=== PATIENT | male | born 1975 | race Caucasian/White ===

== ENCOUNTER 2018-10-27 16:27 | Inpatient (IN) | payer BC ==
[~2018-10-27] VITALS: Ht 180.3 cm; Wt 88.5 kg
[2018-10-27] MEDS ORDERED: CLINDAMYCIN 600MG PREMIX 50 ML IV ONE (16:30)
[2018-10-27 17:24] LABS: BASO % 1 % (0-3); EOS # 0.1 x10^3/uL (0.0-0.7); EOS % 1 % (0-3); HEMATOCRIT 47.9 % (39.0-53.0); HEMOGLOBIN 16.9 g/dL (13.0-17.5); LYMPH # 1.6 x10^3/uL (1.0-4.8); LYMPH % 23 % (24-48); MEAN CORPUSCULAR HEMOGLOBIN 32 pg (25-35); MEAN CORPUSCULAR HGB CONC 35 g/dL (31-37); MEAN CORPUSCULAR VOLUME 90 fL (79-100); MONO # 0.6 x10^3/uL (0.0-1.1); MONO % 8 % (0-9); NEUT # 4.7 x10^3/uL (1.8-7.7); NEUT % 67 % (31-73); PLATELET COUNT 220 x10^3/uL (140-400); RED BLOOD COUNT 5.32 x10^6/uL (4.30-5.70); RED CELL DISTRIBUTION WIDTH 13.5 % (11.5-14.5)
--- NOTE | 2018-10-27 17:24 | PHYS DOC ---
Past Medical History Past Medical History: Asthma, High Cholesterol, Other Additional Past Medical Histor: ASTHMA A CHILD Past Surgical History: No Surgical History Alcohol Use: Heavy Drug Use: Marijuana Adult General Chief Complaint Chief Complaint: UPPER EXTREMITY PAIN HPI HPI Patient is a 43 year old male who presents with 3 days ago was doing work when he got stung on the right forearm. Patient states the area was only quarter- sized and red he was put on doxycycline by a urgent care. Patient states today he went back to urgent care and the redness is now spread dramatically and he's got a red streak up his right forearm. Review of Systems Review of Systems Constitutional: Denies fever or chills [] Eyes: Denies change in visual acuity, redness, or eye pain [] HENT: Denies nasal congestion or sore throat [] Respiratory: Denies cough or shortness of breath [] Cardiovascular: No additional information not addressed in HPI [] GI: Denies abdominal pain, nausea, vomiting, bloody stools or diarrhea [] : Denies dysuria or hematuria [] Musculoskeletal: Denies back pain or joint pain [] Integument: Right forearm wound with cellulitis. Denies rash or skin lesions [] Neurologic: Denies headache, focal weakness or sensory changes [] Endocrine: Denies polyuria or polydipsia [] All other systems were reviewed and found to be within normal limits, except as documented in this note. Current Medications Current Medications Current Medications Medications (Trade) Dose Ordered Sig/Fiona Start Time Stop Time Status Last Admin Dose Admin Clindamycin Phosphate 50 ml @ 100 mls/hr 1X ONCE 10/27/18 16:30 10/27/18 16:59 DC 10/27/18 17:19 100 MLS/HR Allergies Allergies Allergies Coded Allergies Type Severity Reaction Last Updated Verified No Known Drug Allergies 02/06/16 No Physical Exam Physical Exam Constitutional: Well developed, well nourished, no acute distress, non-toxic appearance. [] HENT: Normocephalic, atraumatic, bilateral external ears normal, oropharynx moist, no oral exudates, nose normal. [] Eyes: PERRLA, EOMI, conjunctiva normal, no discharge. [] Neck: Normal range of motion, no tenderness, supple, no stridor. [] Cardiovascular:Heart rate regular rhythm, no murmur [] Lungs & Thorax: Bilateral breath sounds clear to auscultation [] Abdomen: Bowel sounds normal, soft, no tenderness, no masses, no pulsatile masses. [] Skin: Right forearm wound with associated cellulitis and warmth. Warm, dry, no erythema, no rash. [] Back: No tenderness, no CVA tenderness. [] Extremities: No tenderness, no cyanosis, no clubbing, ROM intact, no edema. [] Neurologic: Alert and oriented X 3, normal motor function, normal sensory function, no focal deficits noted. [] Psychologic: Affect normal, judgement normal, mood normal. [] Current Patient Data Lab Values Laboratory Tests Test 10/27/18 17:12 White Blood Count 7.0 x10^3/uL (4.0-11.0) Red Blood Count 5.32 x10^6/uL (4.30-5.70) Hemoglobin 16.9 g/dL (13.0-17.5) Hematocrit 47.9 % (39.0-53.0) Mean Corpuscular Volume 90 fL (79-100) Mean Corpuscular Hemoglobin 32 pg (25-35) Mean Corpuscular Hemoglobin Concent 35 g/dL (31-37) Red Cell Distribution Width 13.5 % (11.5-14.5) Platelet Count 220 x10^3/uL (140-400) Neutrophils (%) (Auto) 67 % (31-73) Lymphocytes (%) (Auto) 23 % (24-48) L Monocytes (%) (Auto) 8 % (0-9) Eosinophils (%) (Auto) 1 % (0-3) Basophils (%) (Auto) 1 % (0-3) Neutrophils # (Auto) 4.7 x10^3/uL (1.8-7.7) Lymphocytes # (Auto) 1.6 x10^3/uL (1.0-4.8) Monocytes # (Auto) 0.6 x10^3/uL (0.0-1.1) Eosinophils # (Auto) 0.1 x10^3/uL (0.0-0.7) Basophils # (Auto) 0.0 x10^3/uL (0.0-0.2) Laboratory Tests 10/27/18 17:12 EKG EKG [] Radiology/Procedures Radiology/Procedures [] Course & Med Decision Making Course & Med Decision Making Patient is a 43 year old male who presents with 3 days ago was doing work when he got stung on the right forearm. Patient states the area was only quarter- sized and red he was put on doxycycline by a urgent care. Patient states today he went back to urgent care and the redness is now spread dramatically and he's got a red streak up his right forearm. The redness now measures 11.5 cm in length and is 2.75 cm wide. The center of the redness there is a wound that is not draining at this time and is slightly raised and has a hard center. Afebrile. Alert and oriented. Skin pink warm and dry. Mucous membranes moist. Patient denies fever, shortness of breath, numbness or tingling, chest pain, nausea, vomiting, abdominal pain, body aches. Patient has full range of motion of his hand and all fingers. Patient has full range of motion of his elbow. The redness and the wound does not cover any joints. Cap refill less than 3 seconds. He states it is painful and has some burning and rates pain at a 5/10. Vital signs within normal limits. I started the patient on clindamycin IV. I have spoken to Dr Cruz and patient is admitted. Dragon Disclaimer Huber Disclaimer This electronic medical record was generated, in whole or in part, using a voice recognition dictation system. Departure Departure Impression: Primary Impression: Cellulitis Disposition: ADMITTED INPATIENT [facility] Referrals: ROOPA GUPTA (PCP) Problem Qualifiers Primary Impression: Cellulitis Site of cellulitis: extremity Site of cellulitis of extremity: upper extremity Laterality: right Qualified Codes: L03.113 - Cellulitis of right upper limb ESPERANZA CANO KEY PUNCH OPERATOR Oct 27, 2018 17:24
[2018-10-27 17:51] LABS: CALCIUM 9.6 mg/dL (8.5-10.1); CREATININE 1.3 mg/dL (0.7-1.3); GFR 60.2; POTASSIUM 3.8 mmol/L (3.5-5.1)
[2018-10-27] MEDS ORDERED: NICOTINE 21MG PATCH. TD PRN (18:00)
[2018-10-27] MEDS ORDERED: fentaNYL PF VIAL 100 MCG/2 ML VIAL IV PRN ×2 (18:00)
[2018-10-27] MEDS ORDERED: cloNIDine HCL 0.1 MG TABLET PO PRN (18:00)
[2018-10-27] MEDS ORDERED: guaiFENesin DM 200MG/20MG 10 ML SYRUP PO PRN (18:00)
[2018-10-27] MEDS ORDERED: ONDANSETRON PF 4 MG/2 ML VIAL. IV PRN ×2 (18:00)
[2018-10-27] MEDS ORDERED: ZOLPIDEM 5 MG TABLET. PO PRN (18:00)
[2018-10-27] MEDS ORDERED: oxyCODONE/APAP 5/325 1 TAB TABLET PO PRN (18:00)
[2018-10-27] MEDS ORDERED: ACETAMINOPHEN 500 MG TABLET PO PRN (18:00)
[2018-10-27 18:04] LABS: ALBUMIN 4.6 g/dL (3.4-5.0); ALBUMIN/GLOBULIN RATIO 1.2 (1.0-1.7); C-REACTIVE PROTEIN 1.6 mg/L (0-3.3); TOTAL BILIRUBIN 0.5 mg/dL (0.2-1.0); TOTAL PROTEIN 8.5 g/dL (6.4-8.2)
[2018-10-27] MEDS ORDERED: VANCOMYCIN PER PHARMACY MC PRN (18:45)
--- NOTE | 2018-10-27 18:45 | PDOC1 ---
History and Physical Date of Admission Date of Admission DATE: 10/27/18 TIME: 18:39 Identification/Chief Complaint Chief Complaint rt forearm bite that has worsened despite OP doxycycline Source Source: Caregiver, Chart review, Patient History of Present Illness History of Present Illness 43-year-old white male, no past medical, does not take any home meds except for statin 20 mgs PO qD, was out in the garden pulling weeds few days ago, then noticed on the right forearm, volar surface bite he did not see the inciting bug. Went to urgent care it was fluctuant, appropriately for discharged on doxycycline, got 3 doses at home but now worse in terms of erythema and streaking upwards, although it has flattened a bit. Never happened before. Smoker and occasional drinker. No home meds, only takes atorvastatin 20 mgs once a day for dyslipidemia. No fever, no white count. Got clindamycin 1 at the ER Nondiabetic Past Medical History Cardiovascular: Hyperlipidemia GI: No pertinent hx Heme/Onc: No pertinent hx Hepatobiliary: No pertinent hx Psych: No pertinent hx Rheumatologic: No pertinent hx Infectious disease: No pertinent hx ENT: No pertinent hx Renal/: No pertinent hx Endocrine: No pertinent hx Dermatology: No pertinent hx Past Surgical History Past Surgical History: No pertinent history Family History Family History: Hypertension Social History Smoke: <1 pack per day ALCOHOL: occassional Drugs: None Current Problem List Problem List Problems Medical Problems: (1) Cellulitis Status: Acute Current Medications Current Medications Current Medications Clindamycin Phosphate 50 ml @ 100 mls/hr 1X ONCE IV Last administered on 10/27/18at 17:19; Start 10/27/18 at 16:30; Stop 10/27/18 at 16:59; Status DC Ondansetron HCl (Zofran) 4 mg PRN Q8HRS PRN IV NAUSEA/VOMITING; Start 10/27/18 at 18:00; Stop 10/27/18 at 18:00; Status DC Fentanyl Citrate (Fentanyl 2ml Vial) 50 mcg PRN Q1HR PRN IV PAIN; Start 10/27/18 at 18:00; Stop 10/27/18 at 18:00; Status DC Fentanyl Citrate (Fentanyl 2ml Vial) 50 mcg PRN Q2HR PRN IV PAIN; Start 10/27/18 at 18:00 Ondansetron HCl (Zofran) 4 mg PRN Q6HRS PRN IV NAUSEA/VOMITING; Start 10/27/18 at 18:00 Oxycodone/ Acetaminophen (Percocet 5/325) 1 tab PRN Q4HRS PRN PO PAIN; Start 10/27/18 at 18:00 Zolpidem Tartrate (Ambien) 5 mg PRN QHS PRN PO INSOMNIA; Start 10/27/18 at 18:00 Acetaminophen (Tylenol) 500 mg PRN Q6HRS PRN PO MILD PAIN / TEMP; Start 10/27/18 at 18:00 Clonidine HCl (Catapres) 0.1 mg PRN Q1HR PRN PO HYPERTENSION; Start 10/27/18 at 18:00 Nicotine (Nicoderm Cq 21mg) 1 patch PRN DAILY PRN TD SMOKING CESSATION; Start 10/27/18 at 18:00 Guaifenesin (Robitussin Dm) 10 ml PRN Q6HRS PRN PO COUGH; Start 10/27/18 at 18:00 Allergies Allergies: Coded Allergies: Penicillins (Verified Allergy, Unknown, 10/27/18) ROS Review of System As per history of present illness, the rest of ROS 14 point negative Physical Exam General: Alert, Oriented X3, Cooperative, No acute distress HEENT: Atraumatic, PERRLA, EOMI Lungs: Clear to auscultation, Normal air movement Heart: S1S2, RRR, no thrills, no rubs, no gallops, no murmurs Cardiovascular: S1, S2 Abdomen: Normal bowel sounds, Soft, No tenderness, No hepatosplenomegaly, No masses Male Genitals Exam: normal genitalia, normal prostate Rectal Exam: not examined Extremities: No clubbing, No cyanosis, No edema, Other (right forearm volar surface wound, punctuate/bite seen, with erythema around maybe 4 CM surrounding erythema in greatest after streaking upwards to the right arm) Neuro: Normal gait, Normal speech, Strength at 5/5 X4 ext, Normal tone, Sensation intact, Cranial nerves 3-12 NL, Reflexes 2+ Psych/Mental Status: Mental status NL, Mood NL Vitals Vitals Vital Signs Date Time Temp Pulse Resp B/P (MAP) Pulse Ox O2 Delivery O2 Flow Rate FiO2 10/27/18 17:47 98.8 102 16 132/80 (97) 97 Room Air 98.8 Labs Labs Laboratory Tests Test 10/27/18 17:12 White Blood Count 7.0 x10^3/uL (4.0-11.0) Red Blood Count 5.32 x10^6/uL (4.30-5.70) Hemoglobin 16.9 g/dL (13.0-17.5) Hematocrit 47.9 % (39.0-53.0) Mean Corpuscular Volume 90 fL (79-100) Mean Corpuscular Hemoglobin 32 pg (25-35) Mean Corpuscular Hemoglobin Concent 35 g/dL (31-37) Red Cell Distribution Width 13.5 % (11.5-14.5) Platelet Count 220 x10^3/uL (140-400) Neutrophils (%) (Auto) 67 % (31-73) Lymphocytes (%) (Auto) 23 % (24-48) Monocytes (%) (Auto) 8 % (0-9) Eosinophils (%) (Auto) 1 % (0-3) Basophils (%) (Auto) 1 % (0-3) Neutrophils # (Auto) 4.7 x10^3/uL (1.8-7.7) Lymphocytes # (Auto) 1.6 x10^3/uL (1.0-4.8) Monocytes # (Auto) 0.6 x10^3/uL (0.0-1.1) Eosinophils # (Auto) 0.1 x10^3/uL (0.0-0.7) Basophils # (Auto) 0.0 x10^3/uL (0.0-0.2) Sodium Level 139 mmol/L (136-145) Potassium Level 3.8 mmol/L (3.5-5.1) Chloride Level 101 mmol/L (98-107) Carbon Dioxide Level 28 mmol/L (21-32) Anion Gap 10 (6-14) Blood Urea Nitrogen 10 mg/dL (8-26) Creatinine 1.3 mg/dL (0.7-1.3) Estimated GFR (Cockcroft-Gault) 60.2 BUN/Creatinine Ratio 8 (6-20) Glucose Level 109 mg/dL (70-99) Lactic Acid Level 1.3 mmol/L (0.4-2.0) Calcium Level 9.6 mg/dL (8.5-10.1) Total Bilirubin 0.5 mg/dL (0.2-1.0) Aspartate Amino Transf (AST/SGOT) 25 U/L (15-37) Alanine Aminotransferase (ALT/SGPT) 31 U/L (16-63) Alkaline Phosphatase 125 U/L (46-116) C-Reactive Protein, Quantitative 1.6 mg/L (0-3.3) Total Protein 8.5 g/dL (6.4-8.2) Albumin 4.6 g/dL (3.4-5.0) Albumin/Globulin Ratio 1.2 (1.0-1.7) Laboratory Tests Test 10/27/18 17:12 White Blood Count 7.0 x10^3/uL (4.0-11.0) Red Blood Count 5.32 x10^6/uL (4.30-5.70) Hemoglobin 16.9 g/dL (13.0-17.5) Hematocrit 47.9 % (39.0-53.0) Mean Corpuscular Volume 90 fL (79-100) Mean Corpuscular Hemoglobin 32 pg (25-35) Mean Corpuscular Hemoglobin Concent 35 g/dL (31-37) Red Cell Distribution Width 13.5 % (11.5-14.5) Platelet Count 220 x10^3/uL (140-400) Neutrophils (%) (Auto) 67 % (31-73) Lymphocytes (%) (Auto) 23 % (24-48) Monocytes (%) (Auto) 8 % (0-9) Eosinophils (%) (Auto) 1 % (0-3) Basophils (%) (Auto) 1 % (0-3) Neutrophils # (Auto) 4.7 x10^3/uL (1.8-7.7) Lymphocytes # (Auto) 1.6 x10^3/uL (1.0-4.8) Monocytes # (Auto) 0.6 x10^3/uL (0.0-1.1) Eosinophils # (Auto) 0.1 x10^3/uL (0.0-0.7) Basophils # (Auto) 0.0 x10^3/uL (0.0-0.2) Sodium Level 139 mmol/L (136-145) Potassium Level 3.8 mmol/L (3.5-5.1) Chloride Level 101 mmol/L (98-107) Carbon Dioxide Level 28 mmol/L (21-32) Anion Gap 10 (6-14) Blood Urea Nitrogen 10 mg/dL (8-26) Creatinine 1.3 mg/dL (0.7-1.3) Estimated GFR (Cockcroft-Gault) 60.2 BUN/Creatinine Ratio 8 (6-20) Glucose Level 109 mg/dL (70-99) Lactic Acid Level 1.3 mmol/L (0.4-2.0) Calcium Level 9.6 mg/dL (8.5-10.1) Total Bilirubin 0.5 mg/dL (0.2-1.0) Aspartate Amino Transf (AST/SGOT) 25 U/L (15-37) Alanine Aminotransferase (ALT/SGPT) 31 U/L (16-63) Alkaline Phosphatase 125 U/L (46-116) C-Reactive Protein, Quantitative 1.6 mg/L (0-3.3) Total Protein 8.5 g/dL (6.4-8.2) Albumin 4.6 g/dL (3.4-5.0) Albumin/Globulin Ratio 1.2 (1.0-1.7) VTE Prophylaxis Ordered VTE Prophylaxis Devices: Yes VTE Pharmacological Prophylaxi: Yes Assessment/Plan Assessment/Plan RT Forearm volar surface bite/wound with cellulitis streaking upwards Nondiabetic Failed outpatient abx - doxycycline-got total 3 doses (went to urgent care) Occasional smoker, occasional drinker Dyslipidemia on statin PLAN: 2 [place] VAnc per pharamcy Check CRP ID consult OK to cont statin NSAID celebrex to help with inflammation Area of concern has been marked with blank ink Reg diet I held off US, not fluctuant - somewhat flat BC drawn already at ER román patch FULL CODE Seen at ER BRENDA JACKSON MD Oct 27, 2018 18:45
[2018-10-27 19:00] VITALS: BP 136/82
[2018-10-27] MEDS ORDERED: VANCOMYCIN 2 GM in IV NORMAL SALINE 500ML BAG 500 ML IV ONE (19:30)
--- NOTE | 2018-10-27 19:41 | NUR ---
Pharmacy Vancomycin Dosing Note S:Consulted to monitor and dose vancomycin started 10/27/18. O:PETEY SHERIDAN is a 43 year old M with Cellulitis . Height: 5 feet, 11 inches Weight: [id number] kg [place] Body Weight: 75.30 Adjusted Body Weight: 80.38 Dosing Weight: Actual Other Antibiotics: LABS: Last BUN: 10 Last Creatinine: 1.3 Creatinine Clearance: 84 mL/min Last WBC: 7.0 Last Procalcitonin: Tmax (past 24 hours): Microbiology: I/O: Drug Levels: Last level: on at Last dose given at Vancomycin Dosing: Loading Dose: 2000 mg x1 Dosing Weight: Actual Target Trough: 10-20 A: Based on: HT, WT AND RENAL FUNCTION P: 1. Begin Vancomycin 1250 mg IV q12h 2. Follow up Trough level on 10/29/18 at 0630 3. Pharmacy will continue to monitor, follow and adjust therapy as needed. NI BURNETTE, [facility], 10/27/18 [id number]
--- NOTE | 2018-10-27 19:51 | NUR ---
The patient, PETEY SHERIDAN, 43 y/o, M admitted by BRENDA JACKSON MD, was given written information regarding hospital policies, unit procedures and contact persons. Valuables were checked and left with him.
[2018-10-27] MEDS ORDERED: ATOR20TA58 PO (21:08)
[2018-10-27] MEDS: CELECOXIB 100 MG CAPSULE. PO SCH (21:43)
[2018-10-27] MEDS ORDERED: ATORVASTATIN CALCIUM 20 MG TABLET PO SCH (22:00)
[2018-10-27 23:05] VITALS: BP 134/74
[2018-10-28 03:22] VITALS: BP 118/70
[2018-10-28 05:14] LABS: CALCIUM 8.6 mg/dL (8.5-10.1); CREATININE 1.1 mg/dL (0.7-1.3); GFR 73.1; POTASSIUM 3.7 mmol/L (3.5-5.1)
[2018-10-28 07:00] VITALS: BP 126/81
[2018-10-28] MEDS ORDERED: VANCOMYCIN 1.25 GM in IV NORMAL SALINE 250ML 250 ML IV SCH (07:00)
[2018-10-28] MEDS: CELECOXIB 100 MG CAPSULE. PO SCH (08:31)
--- NOTE | 2018-10-28 09:17 | PDOC ---
PROGRESS NOTES Chief Complaint Chief Complaint RT Forearm volar surface bite/wound with cellulitis streaking upwards Nondiabetic Failed outpatient abx - doxycycline-got total 3 doses (went to urgent care) Occasional smoker, occasional drinker Dyslipidemia on statin History of Present Illness History of Present Illness I see him after about after 12 hours when I last saw him at the ER Right upper arm streaking is gone, significant improvement of redness and erythema around the bite site Plan Await ID rounds Might be able to DC either later or tomorrow morning Continue vanc for now Blood cultures are still cooking Vitals Vitals Vital Signs Date Time Temp Pulse Resp B/P (MAP) Pulse Ox O2 Delivery O2 Flow Rate FiO2 10/28/18 07:00 97.6 63 18 126/81 (96) 98 Room Air 97.6 Physical Exam General: Alert, Oriented X3, Cooperative, No acute distress Heart: Regular rate, Normal S1, Normal S2 Lungs: Clear Abdomen: Normal bowel sounds, Soft, No tenderness, No hepatosplenomegaly, No masses Extremities: No clubbing, No cyanosis, No edema, Other (right forearm volar surface wound, punctuate/bite seen, with erythema around maybe 4 CM surrounding erythema in greatest after streaking upwards to the right arm) Labs LABS Laboratory Tests Test 10/27/18 17:12 10/28/18 04:05 White Blood Count 7.0 x10^3/uL (4.0-11.0) Red Blood Count 5.32 x10^6/uL (4.30-5.70) Hemoglobin 16.9 g/dL (13.0-17.5) Hematocrit 47.9 % (39.0-53.0) Mean Corpuscular Volume 90 fL (79-100) Mean Corpuscular Hemoglobin 32 pg (25-35) Mean Corpuscular Hemoglobin Concent 35 g/dL (31-37) Red Cell Distribution Width 13.5 % (11.5-14.5) Platelet Count 220 x10^3/uL (140-400) Neutrophils (%) (Auto) 67 % (31-73) Lymphocytes (%) (Auto) 23 % (24-48) Monocytes (%) (Auto) 8 % (0-9) Eosinophils (%) (Auto) 1 % (0-3) Basophils (%) (Auto) 1 % (0-3) Neutrophils # (Auto) 4.7 x10^3/uL (1.8-7.7) Lymphocytes # (Auto) 1.6 x10^3/uL (1.0-4.8) Monocytes # (Auto) 0.6 x10^3/uL (0.0-1.1) Eosinophils # (Auto) 0.1 x10^3/uL (0.0-0.7) Basophils # (Auto) 0.0 x10^3/uL (0.0-0.2) Sodium Level 139 mmol/L (136-145) 139 mmol/L (136-145) Potassium Level 3.8 mmol/L (3.5-5.1) 3.7 mmol/L (3.5-5.1) Chloride Level 101 mmol/L (98-107) 104 mmol/L (98-107) Carbon Dioxide Level 28 mmol/L (21-32) 26 mmol/L (21-32) Anion Gap 10 (6-14) 9 (6-14) Blood Urea Nitrogen 10 mg/dL (8-26) 11 mg/dL (8-26) Creatinine 1.3 mg/dL (0.7-1.3) 1.1 mg/dL (0.7-1.3) Estimated GFR (Cockcroft-Gault) 60.2 73.1 BUN/Creatinine Ratio 8 (6-20) Glucose Level 109 mg/dL (70-99) 94 mg/dL (70-99) Lactic Acid Level 1.3 mmol/L (0.4-2.0) Calcium Level 9.6 mg/dL (8.5-10.1) 8.6 mg/dL (8.5-10.1) Total Bilirubin 0.5 mg/dL (0.2-1.0) Aspartate Amino Transf (AST/SGOT) 25 U/L (15-37) Alanine Aminotransferase (ALT/SGPT) 31 U/L (16-63) Alkaline Phosphatase 125 U/L (46-116) C-Reactive Protein, Quantitative 1.6 mg/L (0-3.3) Total Protein 8.5 g/dL (6.4-8.2) Albumin 4.6 g/dL (3.4-5.0) Albumin/Globulin Ratio 1.2 (1.0-1.7) Review of Systems Review of Systems A 14 point ROS was completed with the following noted as positive: Other systems reviewed and negative. \CONSTITUTIONAL: No fever or chills EYES: No recent changes SKIN: No rash or itching CARDIOVASCULAR: No chest pain, syncope, palpitations, or edema RESPIRATORY: No SOB or cough GASTROINTESTINAL: No nausea, vomiting or abdominal pain NEUROLOGICAL: No headaches or weakness ENDOCRINE: No cold or heat intolerance GENITOURINARY: No urgency or frequency of urination MUSCULOSKELETAL: No back pain or joint pain LYMPHATICS: No enlarged lymph nodes PSYCHIATRIC: No anxiety or depression Assessment and Plan Assessmemt and Plan Problems Medical Problems: (1) Cellulitis Status: Acute Comment Review of Relevant I have reviewed the following items emilio (where applicable) has been applied. Labs Laboratory Tests Test 10/27/18 17:12 10/28/18 04:05 White Blood Count 7.0 x10^3/uL (4.0-11.0) Red Blood Count 5.32 x10^6/uL (4.30-5.70) Hemoglobin 16.9 g/dL (13.0-17.5) Hematocrit 47.9 % (39.0-53.0) Mean Corpuscular Volume 90 fL (79-100) Mean Corpuscular Hemoglobin 32 pg (25-35) Mean Corpuscular Hemoglobin Concent 35 g/dL (31-37) Red Cell Distribution Width 13.5 % (11.5-14.5) Platelet Count 220 x10^3/uL (140-400) Neutrophils (%) (Auto) 67 % (31-73) Lymphocytes (%) (Auto) 23 % (24-48) Monocytes (%) (Auto) 8 % (0-9) Eosinophils (%) (Auto) 1 % (0-3) Basophils (%) (Auto) 1 % (0-3) Neutrophils # (Auto) 4.7 x10^3/uL (1.8-7.7) Lymphocytes # (Auto) 1.6 x10^3/uL (1.0-4.8) Monocytes # (Auto) 0.6 x10^3/uL (0.0-1.1) Eosinophils # (Auto) 0.1 x10^3/uL (0.0-0.7) Basophils # (Auto) 0.0 x10^3/uL (0.0-0.2) Sodium Level 139 mmol/L (136-145) 139 mmol/L (136-145) Potassium Level 3.8 mmol/L (3.5-5.1) 3.7 mmol/L (3.5-5.1) Chloride Level 101 mmol/L (98-107) 104 mmol/L (98-107) Carbon Dioxide Level 28 mmol/L (21-32) 26 mmol/L (21-32) Anion Gap 10 (6-14) 9 (6-14) Blood Urea Nitrogen 10 mg/dL (8-26) 11 mg/dL (8-26) Creatinine 1.3 mg/dL (0.7-1.3) 1.1 mg/dL (0.7-1.3) Estimated GFR (Cockcroft-Gault) 60.2 73.1 BUN/Creatinine Ratio 8 (6-20) Glucose Level 109 mg/dL (70-99) 94 mg/dL (70-99) Lactic Acid Level 1.3 mmol/L (0.4-2.0) Calcium Level 9.6 mg/dL (8.5-10.1) 8.6 mg/dL (8.5-10.1) Total Bilirubin 0.5 mg/dL (0.2-1.0) Aspartate Amino Transf (AST/SGOT) 25 U/L (15-37) Alanine Aminotransferase (ALT/SGPT) 31 U/L (16-63) Alkaline Phosphatase 125 U/L (46-116) C-Reactive Protein, Quantitative 1.6 mg/L (0-3.3) Total Protein 8.5 g/dL (6.4-8.2) Albumin 4.6 g/dL (3.4-5.0) Albumin/Globulin Ratio 1.2 (1.0-1.7) Laboratory Tests Test 10/27/18 17:12 10/28/18 04:05 White Blood Count 7.0 x10^3/uL (4.0-11.0) Red Blood Count 5.32 x10^6/uL (4.30-5.70) Hemoglobin 16.9 g/dL (13.0-17.5) Hematocrit 47.9 % (39.0-53.0) Mean Corpuscular Volume 90 fL (79-100) Mean Corpuscular Hemoglobin 32 pg (25-35) Mean Corpuscular Hemoglobin Concent 35 g/dL (31-37) Red Cell Distribution Width 13.5 % (11.5-14.5) Platelet Count 220 x10^3/uL (140-400) Neutrophils (%) (Auto) 67 % (31-73) Lymphocytes (%) (Auto) 23 % (24-48) Monocytes (%) (Auto) 8 % (0-9) Eosinophils (%) (Auto) 1 % (0-3) Basophils (%) (Auto) 1 % (0-3) Neutrophils # (Auto) 4.7 x10^3/uL (1.8-7.7) Lymphocytes # (Auto) 1.6 x10^3/uL (1.0-4.8) Monocytes # (Auto) 0.6 x10^3/uL (0.0-1.1) Eosinophils # (Auto) 0.1 x10^3/uL (0.0-0.7) Basophils # (Auto) 0.0 x10^3/uL (0.0-0.2) Sodium Level 139 mmol/L (136-145) 139 mmol/L (136-145) Potassium Level 3.8 mmol/L (3.5-5.1) 3.7 mmol/L (3.5-5.1) Chloride Level 101 mmol/L (98-107) 104 mmol/L (98-107) Carbon Dioxide Level 28 mmol/L (21-32) 26 mmol/L (21-32) Anion Gap 10 (6-14) 9 (6-14) Blood Urea Nitrogen 10 mg/dL (8-26) 11 mg/dL (8-26) Creatinine 1.3 mg/dL (0.7-1.3) 1.1 mg/dL (0.7-1.3) Estimated GFR (Cockcroft-Gault) 60.2 73.1 BUN/Creatinine Ratio 8 (6-20) Glucose Level 109 mg/dL (70-99) 94 mg/dL (70-99) Lactic Acid Level 1.3 mmol/L (0.4-2.0) Calcium Level 9.6 mg/dL (8.5-10.1) 8.6 mg/dL (8.5-10.1) Total Bilirubin 0.5 mg/dL (0.2-1.0) Aspartate Amino Transf (AST/SGOT) 25 U/L (15-37) Alanine Aminotransferase (ALT/SGPT) 31 U/L (16-63) Alkaline Phosphatase 125 U/L (46-116) C-Reactive Protein, Quantitative 1.6 mg/L (0-3.3) Total Protein 8.5 g/dL (6.4-8.2) Albumin 4.6 g/dL (3.4-5.0) Albumin/Globulin Ratio 1.2 (1.0-1.7) Medications Current Medications Clindamycin Phosphate 50 ml @ 100 mls/hr 1X ONCE IV Last administered on 10/27/18at 17:19; Start 10/27/18 at 16:30; Stop 10/27/18 at 16:59; Status DC Ondansetron HCl (Zofran) 4 mg PRN Q8HRS PRN IV NAUSEA/VOMITING; Start 10/27/18 at 18:00; Stop 10/27/18 at 18:00; Status DC Fentanyl Citrate (Fentanyl 2ml Vial) 50 mcg PRN Q1HR PRN IV PAIN; Start 10/27/18 at 18:00; Stop 10/27/18 at 18:00; Status DC Fentanyl Citrate (Fentanyl 2ml Vial) 50 mcg PRN Q2HR PRN IV PAIN; Start 10/27/18 at 18:00 Ondansetron HCl (Zofran) 4 mg PRN Q6HRS PRN IV NAUSEA/VOMITING; Start 10/27/18 at 18:00 Oxycodone/ Acetaminophen (Percocet 5/325) 1 tab PRN Q4HRS PRN PO PAIN; Start 10/27/18 at 18:00 Zolpidem Tartrate (Ambien) 5 mg PRN QHS PRN PO INSOMNIA; Start 10/27/18 at 18: 00 Acetaminophen (Tylenol) 500 mg PRN Q6HRS PRN PO MILD PAIN / TEMP; Start 10/27/18 at 18:00 Clonidine HCl (Catapres) 0.1 mg PRN Q1HR PRN PO HYPERTENSION; Start 10/27/18 at 18:00 Nicotine (Nicoderm Cq 21mg) 1 patch PRN DAILY PRN TD SMOKING CESSATION; Start 10/27/18 at 18:00 Guaifenesin (Robitussin Dm) 10 ml PRN Q6HRS PRN PO COUGH; Start 10/27/18 at 18:00 Vancomycin HCl (Vanco Per Pharmacy) 1 each PRN DAILY PRN MC SEE COMMENTS Last administered on 10/27/18at 19:32; Start 10/27/18 at 18:45 Celecoxib (CeleBREX) 100 mg BID PO Last administered on 10/28/18at 08:31; Start 10/27/18 at 21:00 Vancomycin HCl 2 gm/Sodium Chloride 500 ml @ 250 mls/hr 1X ONCE IV Last administered on 10/27/18at 19:21; Start 10/27/18 at 19:30; Stop 10/27/18 at 21:29; Status DC Vancomycin HCl (Vancomycin Trough Level) 1 each 1X ONCE MC ; Start 10/29/18 at 06:30; Stop 10/29/18 at 06:31 Vancomycin HCl 1.25 gm/Sodium Chloride 250 ml @ 167 mls/hr Q12H IV Last administered on 10/28/18at 06:38; Start 10/28/18 at 07:00 Atorvastatin Calcium (Lipitor) 20 mg HS PO Last administered on 10/27/18at 21:43; Start 10/27/18 at 22:00 Active Scripts Active Reported Atorvastatin Calcium 20 Mg Tablet 20 Mg PO HS Vitals/I & O Vital Sign - Last 24 Hours 10/27/18 10/27/18 10/27/18 10/27/18 17:47 18:45 19:00 19:45 Temp 98.8 97.6 98.8 97.6 Pulse 102 78 76 76 Resp 16 16 20 17 B/P (MAP) 132/80 (97) 125/76 (92) 136/82 (100) 118/75 (89) Pulse Ox 97 97 98 97 O2 Delivery Room Air Room Air Room Air Room Air 10/27/18 10/27/18 10/28/18 10/28/18 19:55 23:05 03:22 07:00 Temp 98.0 98.2 97.6 98.0 98.2 97.6 Pulse 78 69 63 Resp 20 20 18 B/P (MAP) 134/74 (94) 118/70 (86) 126/81 (96) Pulse Ox 97 99 98 O2 Delivery Room Air Room Air Room Air Room Air Intake and Output 10/27/18 10/27/18 10/28/18 14:59 22:59 06:59 Intake Total 550 ml Balance 550 ml BRENDA JACKSON MD Oct 28, 2018 09:17
[2018-10-28 11:00] VITALS: BP 109/61
--- NOTE | 2018-10-28 12:02 | PDOC ---
Infectious Disease Note Vital Sign Vital Signs Vital Signs Date Time Temp Pulse Resp B/P (MAP) Pulse Ox O2 Delivery O2 Flow Rate FiO2 10/28/18 11:00 98.0 63 18 109/61 (77) 98 Room Air 98.0 Labs Lab Laboratory Tests Test 10/27/18 17:12 10/28/18 04:05 White Blood Count 7.0 x10^3/uL (4.0-11.0) Red Blood Count 5.32 x10^6/uL (4.30-5.70) Hemoglobin 16.9 g/dL (13.0-17.5) Hematocrit 47.9 % (39.0-53.0) Mean Corpuscular Volume 90 fL (79-100) Mean Corpuscular Hemoglobin 32 pg (25-35) Mean Corpuscular Hemoglobin Concent 35 g/dL (31-37) Red Cell Distribution Width 13.5 % (11.5-14.5) Platelet Count 220 x10^3/uL (140-400) Neutrophils (%) (Auto) 67 % (31-73) Lymphocytes (%) (Auto) 23 % (24-48) Monocytes (%) (Auto) 8 % (0-9) Eosinophils (%) (Auto) 1 % (0-3) Basophils (%) (Auto) 1 % (0-3) Neutrophils # (Auto) 4.7 x10^3/uL (1.8-7.7) Lymphocytes # (Auto) 1.6 x10^3/uL (1.0-4.8) Monocytes # (Auto) 0.6 x10^3/uL (0.0-1.1) Eosinophils # (Auto) 0.1 x10^3/uL (0.0-0.7) Basophils # (Auto) 0.0 x10^3/uL (0.0-0.2) Sodium Level 139 mmol/L (136-145) 139 mmol/L (136-145) Potassium Level 3.8 mmol/L (3.5-5.1) 3.7 mmol/L (3.5-5.1) Chloride Level 101 mmol/L (98-107) 104 mmol/L (98-107) Carbon Dioxide Level 28 mmol/L (21-32) 26 mmol/L (21-32) Anion Gap 10 (6-14) 9 (6-14) Blood Urea Nitrogen 10 mg/dL (8-26) 11 mg/dL (8-26) Creatinine 1.3 mg/dL (0.7-1.3) 1.1 mg/dL (0.7-1.3) Estimated GFR (Cockcroft-Gault) 60.2 73.1 BUN/Creatinine Ratio 8 (6-20) Glucose Level 109 mg/dL (70-99) 94 mg/dL (70-99) Lactic Acid Level 1.3 mmol/L (0.4-2.0) Calcium Level 9.6 mg/dL (8.5-10.1) 8.6 mg/dL (8.5-10.1) Total Bilirubin 0.5 mg/dL (0.2-1.0) Aspartate Amino Transf (AST/SGOT) 25 U/L (15-37) Alanine Aminotransferase (ALT/SGPT) 31 U/L (16-63) Alkaline Phosphatase 125 U/L (46-116) C-Reactive Protein, Quantitative 1.6 mg/L (0-3.3) Total Protein 8.5 g/dL (6.4-8.2) Albumin 4.6 g/dL (3.4-5.0) Albumin/Globulin Ratio 1.2 (1.0-1.7) Objective Assessment Cellulitis of right forearm Insect bite PCN allergy w seizures Tobaccoism Plan Plan of Care Improving on vancomycin wean to po soon Monitor renal function closely Local wound care D/w nursing Thank you [id number] Attending Co-Sign The patient was seen and interviewed as well as examined at the bedside. The chart was reviewed. The case was discussed. Agree with the plan of care. pt can be d/c ed on po antibiotics he wants to go home BAUDILIO DIEHL APRN Oct 28, 2018 12:02 SYLVESTER PIERCE MD Oct 28, 2018 12:09
--- NOTE | 2018-10-28 12:25 | CONS ---
DATE OF CONSULTATION: 10/28/2018 Lanre, nurse practitioner, dictating for Bao Pierce MD, Infectious Disease. REQUESTING PHYSICIAN: Anjali Cruz MD REASON FOR CONSULT: Right forearm bite. HISTORY OF PRESENT ILLNESS: This patient is a 43-year-old male, who about 4 days ago was outside pulling weeds when he felt a sting on his right forearm. It did not look bad to him and thought nothing of it. However, the next day, it was itchy and starting to develop redness. He developed redness that progressed up his arm the following few days. He was taking doxycycline without improvement. He has since been admitted and was given a dose of vancomycin and clindamycin. Today, the patient says the redness is almost gone. He feels good and is wanting to go home. He denies fevers, chills, or body aches. PAST MEDICAL HISTORY: Hypercholesterolemia, asthma, and tobaccoism. PAST SURGICAL HISTORY: No past surgical history. FAMILY HISTORY: Positive for hypertension. SOCIAL HISTORY: The patient is a smoker. He drinks alcohol occasionally. ALLERGIES: PENICILLIN CAUSING SEIZURES SINCE CHILDHOOD. MEDICATIONS: Vancomycin. One-time dose of clindamycin. Other medications are available and have been reviewed on the JUN. REVIEW OF SYSTEMS: Per HPI, otherwise all other review of systems are negative. PHYSICAL EXAMINATION: VITAL SIGNS: Temperature 98.0, blood pressure 109/61, heart rate 63, respiratory rate 18, pulse oximetry is 98% on room air. BMI 27. HEENT: Pupils equally round and reactive. Oropharynx pink and moist. Dentures in place. No thrush. He has ear piercings. NECK: Supple. LUNGS: Clear to auscultation. HEART: S1, S2. ABDOMEN: Soft, nontender with bowel sounds present. EXTREMITIES: No gross edema or cyanosis. SKIN: Warm to touch. He has some faint redness with a small centralized wound and induration on the front of his right forearm. There is no drainage and it is minimally tender. NEUROLOGIC: Alert and oriented x 3. LABORATORY DATA: From 10/27/2018; WBC 7.0, hemoglobin 16.9, platelets 220,000. Electrolytes: Unremarkable. Creatinine 1.1, BUN 11, glucose 94. AST 25, ALT 31, total bilirubin 0.5, albumin 4.6. Blood cultures from 10/27/2018 are pending. IMPRESSION: 1. Cellulitis of right forearm. 2. Insect bite. 3. PENICILLIN ALLERGY WITH SEIZURES. 4. Tobaccoism. PLAN: The patient is clinically improving on vancomycin. Wean to oral antibiotics soon. Monitor renal function closely. Local wound care. Discussed with nursing. Thank you, Dr. Cruz, for asking us to participate in this patient's care. Should you have further questions or concerns, please call. BAO PIERCE MD DR: CHELSEA/andreia JOB#: [id number] / [id number]
--- NOTE | 2018-10-28 12:42 | PDOC3 ---
Discharge Summary Visit Information Date of Admission: Oct 27, 2018 Date of Discharge: Oct 28, 2018 Admitting Diagnosis Comment: RT Forearm volar surface bite/wound with cellulitis streaking upwards Nondiabetic Failed outpatient abx - doxycycline-got total 3 doses (went to urgent care) Occasional smoker, occasional drinker Dyslipidemia on statin Final Diagnosis Problems Medical Problems: (1) Cellulitis Status: Acute Brief Hospital Course Allergies Allergies Coded Allergies Type Severity Reaction Last Updated Verified Penicillins Allergy Unknown 10/27/18 Yes Vital Signs Vital Signs Date Time Temp Pulse Resp B/P (MAP) Pulse Ox O2 Delivery O2 Flow Rate FiO2 10/28/18 11:00 98.0 63 18 109/61 (77) 98 Room Air 98.0 Lab Results Laboratory Tests Test 10/27/18 17:12 10/28/18 04:05 White Blood Count 7.0 x10^3/uL (4.0-11.0) Red Blood Count 5.32 x10^6/uL (4.30-5.70) Hemoglobin 16.9 g/dL (13.0-17.5) Hematocrit 47.9 % (39.0-53.0) Mean Corpuscular Volume 90 fL (79-100) Mean Corpuscular Hemoglobin 32 pg (25-35) Mean Corpuscular Hemoglobin Concent 35 g/dL (31-37) Red Cell Distribution Width 13.5 % (11.5-14.5) Platelet Count 220 x10^3/uL (140-400) Neutrophils (%) (Auto) 67 % (31-73) Lymphocytes (%) (Auto) 23 % (24-48) Monocytes (%) (Auto) 8 % (0-9) Eosinophils (%) (Auto) 1 % (0-3) Basophils (%) (Auto) 1 % (0-3) Neutrophils # (Auto) 4.7 x10^3/uL (1.8-7.7) Lymphocytes # (Auto) 1.6 x10^3/uL (1.0-4.8) Monocytes # (Auto) 0.6 x10^3/uL (0.0-1.1) Eosinophils # (Auto) 0.1 x10^3/uL (0.0-0.7) Basophils # (Auto) 0.0 x10^3/uL (0.0-0.2) Sodium Level 139 mmol/L (136-145) 139 mmol/L (136-145) Potassium Level 3.8 mmol/L (3.5-5.1) 3.7 mmol/L (3.5-5.1) Chloride Level 101 mmol/L (98-107) 104 mmol/L (98-107) Carbon Dioxide Level 28 mmol/L (21-32) 26 mmol/L (21-32) Anion Gap 10 (6-14) 9 (6-14) Blood Urea Nitrogen 10 mg/dL (8-26) 11 mg/dL (8-26) Creatinine 1.3 mg/dL (0.7-1.3) 1.1 mg/dL (0.7-1.3) Estimated GFR (Cockcroft-Gault) 60.2 73.1 BUN/Creatinine Ratio 8 (6-20) Glucose Level 109 mg/dL (70-99) 94 mg/dL (70-99) Lactic Acid Level 1.3 mmol/L (0.4-2.0) Calcium Level 9.6 mg/dL (8.5-10.1) 8.6 mg/dL (8.5-10.1) Total Bilirubin 0.5 mg/dL (0.2-1.0) Aspartate Amino Transf (AST/SGOT) 25 U/L (15-37) Alanine Aminotransferase (ALT/SGPT) 31 U/L (16-63) Alkaline Phosphatase 125 U/L (46-116) C-Reactive Protein, Quantitative 1.6 mg/L (0-3.3) Total Protein 8.5 g/dL (6.4-8.2) Albumin 4.6 g/dL (3.4-5.0) Albumin/Globulin Ratio 1.2 (1.0-1.7) Laboratory Tests Test 10/27/18 17:12 10/28/18 04:05 White Blood Count 7.0 x10^3/uL (4.0-11.0) Red Blood Count 5.32 x10^6/uL (4.30-5.70) Hemoglobin 16.9 g/dL (13.0-17.5) Hematocrit 47.9 % (39.0-53.0) Mean Corpuscular Volume 90 fL (79-100) Mean Corpuscular Hemoglobin 32 pg (25-35) Mean Corpuscular Hemoglobin Concent 35 g/dL (31-37) Red Cell Distribution Width 13.5 % (11.5-14.5) Platelet Count 220 x10^3/uL (140-400) Neutrophils (%) (Auto) 67 % (31-73) Lymphocytes (%) (Auto) 23 % (24-48) Monocytes (%) (Auto) 8 % (0-9) Eosinophils (%) (Auto) 1 % (0-3) Basophils (%) (Auto) 1 % (0-3) Neutrophils # (Auto) 4.7 x10^3/uL (1.8-7.7) Lymphocytes # (Auto) 1.6 x10^3/uL (1.0-4.8) Monocytes # (Auto) 0.6 x10^3/uL (0.0-1.1) Eosinophils # (Auto) 0.1 x10^3/uL (0.0-0.7) Basophils # (Auto) 0.0 x10^3/uL (0.0-0.2) Sodium Level 139 mmol/L (136-145) 139 mmol/L (136-145) Potassium Level 3.8 mmol/L (3.5-5.1) 3.7 mmol/L (3.5-5.1) Chloride Level 101 mmol/L (98-107) 104 mmol/L (98-107) Carbon Dioxide Level 28 mmol/L (21-32) 26 mmol/L (21-32) Anion Gap 10 (6-14) 9 (6-14) Blood Urea Nitrogen 10 mg/dL (8-26) 11 mg/dL (8-26) Creatinine 1.3 mg/dL (0.7-1.3) 1.1 mg/dL (0.7-1.3) Estimated GFR (Cockcroft-Gault) 60.2 73.1 BUN/Creatinine Ratio 8 (6-20) Glucose Level 109 mg/dL (70-99) 94 mg/dL (70-99) Lactic Acid Level 1.3 mmol/L (0.4-2.0) Calcium Level 9.6 mg/dL (8.5-10.1) 8.6 mg/dL (8.5-10.1) Total Bilirubin 0.5 mg/dL (0.2-1.0) Aspartate Amino Transf (AST/SGOT) 25 U/L (15-37) Alanine Aminotransferase (ALT/SGPT) 31 U/L (16-63) Alkaline Phosphatase 125 U/L (46-116) C-Reactive Protein, Quantitative 1.6 mg/L (0-3.3) Total Protein 8.5 g/dL (6.4-8.2) Albumin 4.6 g/dL (3.4-5.0) Albumin/Globulin Ratio 1.2 (1.0-1.7) Brief Hospital Course Mr. Arnett is a 43 old [sex] who presented with [ ] 43-year-old white male, no past medical, does not take any home meds except for statin 20 mgs PO qD, was out in the garden pulling weeds few days ago, then noticed on the right forearm, volar surface bite he did not see the inciting bug. Went to urgent care it was fluctuant, appropriately for discharged on doxycycline, got 3 doses at home but now worse in terms of erythema and streaking upwards, although it has flattened a bit. Never happened before. Smoker and occasional drinker. No home meds, only takes atorvastatin 20 mgs once a day for dyslipidemia. No fever, no white count. Got clindamycin 1 at the ER Nondiabetic COURSE: better after 1 dose IV vanc overnight OBS. Seen by ID, advised to cont and finish doxy course NO new home meds 2 notes today Pt seen and examined Discharge Information Condition at Discharge: Improved, Stable Disposition/Orders: D/C to Home Scheduled Atorvastatin Calcium (Atorvastatin Calcium) 20 Mg Tablet, 20 MG PO HS for HLD, #30 Ref 0 (Reported) Entered as Reported by: SEAN WHEATLEY on 10/27/182107 Last Action: Continued on 10/27/182108 by BRENDA KIDD MD Oct 28, 2018 12:42
--- NOTE | 2018-10-28 13:21 | NUR ---
Discharge Note: PETEY SHERIDAN S [address] [place] [address] Discharge instructions and discharge home medications reviewed with Patient and a copy given. All questions have been answered and understanding verbalized. The following instructions and handouts were given: ABT&R, cellulitis, bug bite Discontinued lines and drains: peripheral line. Patient discharged to Home or Self Care with Spouse via Ambulated
== END 2018-10-28 13:24 | disposition home or self-care (01) | DRG 603 ==
LOC: ER 16:27 → 5 NORTH 17:53
PROVIDERS: ADMIT Internal Medicine; ATTEND Internal Medicine
DX: L03.113 Cellulitis of right upper limb (principal); E78.00 Pure hypercholesterolemia, unspecified; J45.909 Unspecified asthma, uncomplicated; F12.90 Cannabis use, unspecified, uncomplicated; F17.210 Nicotine dependence, cigarettes, uncomplicated; T14.8XXA Other injury of unspecified body region, initial encounter; E78.5 Hyperlipidemia, unspecified; Z82.49 Family history of ischemic heart disease and other diseases of the circulatory system; Z88.0 Allergy status to penicillin; Z87.09 Personal history of other diseases of the respiratory system; W57.XXXA Bitten or stung by nonvenomous insect and other nonvenomous arthropods, initial encounter; Y93.89 Activity, other specified; Y92.89 Other specified places as the place of occurrence of the external cause; Y99.8 Other external cause status
CPT/HCPCS: 36415; 80048; 80053; 83605; 85025; 86140; 87040; 96365; 96366; 96367; J3370; J3490; J7040; J7050; 99285-25; J7030